=== PATIENT | female | born 2000 | race Two or more races ===

== ENCOUNTER 2025-09-25 04:29 | Emergency (ER) | payer OTHER ==
[~2025-09-25] VITALS: Ht 154.9 cm; Wt 44.9 kg
[2025-09-25] MEDS ORDERED: PROMETHAZINE HCL 25 MG/ML AMPUL IM STA (05:41)
[2025-09-25] MEDS ORDERED: KETOROLAC TROMETHAMINE 15 MG VIAL IM STA (05:42)
[2025-09-25] MEDS ORDERED: FAMOTIDINE/PF 20 MG/2 ML VIAL ONE (05:44)
[2025-09-25] MEDS ORDERED: FAMOTIDINE/PF 20 MG/2 ML VIAL IV STA (05:44)
[2025-09-25] MEDS ORDERED: PROMETHAZINE HCL 25 MG/ML AMPUL ONE ×2 (05:44→08:36)
[2025-09-25] MEDS ORDERED: KETOROLAC TROMETHAMINE 30 MG VIAL ONE (05:44)
[2025-09-25] MEDS ORDERED: 0.9 % SODIUM CHLORIDE 500 ML IV SCH (05:45)
[2025-09-25] MEDS ORDERED: MORPHINE SULFATE 4 MG/ML VIAL IV PRN (07:45)
[2025-09-25] MEDS ORDERED: PANTOPRAZOLE SODIUM 40 MG/VIAL VIAL IV ONE (07:45)
[2025-09-25] MEDS ORDERED: ONDANSETRON HCL 2 MG/ML VIAL IV PRN (07:45)
[2025-09-25 07:51] LABS: BASO % 0.1 % (0.1-1.2); EOS # 0.00 (0.04-0.54); EOS % 0.0 % (0.7-7.0); LYMPH # 0.83 (1.18-3.74); LYMPH % 7.8 % (19.3-53.1); MEAN PLATELET VOLUME 10.00 fl (9.4-12.4); MONO # 0.18 (0.24-0.82); MONO % 1.7 % (4.7-12.5); NEUT # 9.57 (1.56-6.13); NEUT % 90.0 % (34.0-71.1); RED CELL DISTRIBUTION WIDTH 12.2 % (11.6-14.4)
[2025-09-25] MEDS ORDERED: CIPROFLOXACIN IN 5 % DEXTROSE 400 MG/200 ML PIGGYBAG IV ONE (08:17)
[2025-09-25] MEDS ORDERED: ONDANSETRON HCL 2 MG/ML VIAL ONE (08:36)
[2025-09-25] MEDS ORDERED: CIPROFLOXACIN IN 5 % DEXTROSE 400 MG/200 ML PIGGYBAG IV SCH (09:00)
[2025-09-25 10:13] LABS: BUN CREA RATIO 15 (7.0-25.0); CREATININE SERUM 0.87 mg/dL (0.55-1.02); GFR 78.70; GLUCOSE FASTING 193 mg/dL (65-100); OSMOLALITY SERUM 283 MOSM/KG (275-295)
[2025-09-25] MEDS ORDERED: POTASSIUM CHLORIDE IN 0.9%NACL 40 MEQ/1,000 ML PIGGYBAG IV ONE (10:45)
[2025-09-25] MEDS ORDERED: PROMETHAZINE HCL 25 MG/ML AMPUL IM ONE (12:00)
[2025-09-25 15:07] LABS: ALT/SGPT 68.0 U/L (12-78); AST/SGOT 63.0 U/L (15-37); BILIRUBIN TOTAL 0.35 mg/dL (0.3-1.2); BILIRUBIN,CONJUGATED 0.13 mg/dL (0.0-0.2); BUN CREA RATIO 24.0 (7.0-25.0); CREATININE SERUM 0.59 mg/dL (0.55-1.02); GFR 123.21; GLOBULINA 3.3 G/DL (2.4-3.5); GLUCOSE FASTING 111.0 mg/dL (65-100); OSMOLALITY SERUM 288.0 MOSM/KG (275-295)
[2025-09-25 15:36] LABS: COVID-19 AG NEGATIVE (NEGATIVE)
[2025-09-25 20:12] LABS: URINE APPEARANCE Clear; URINE BILIRRUBIN Negative (NEGATIVE); URINE BLOOD Large; URINE COLOR Yellow; URINE LEUKOCYTE Trace; URINE NITRATE Negative; URINE UROBILINOGEN 1.0 E.U./dl
[2025-09-25 20:13] LABS: URINE EPITHELIAL CELLS 90.5 uL (0.0-38.8); URINE RBC 26.7 uL (0.0-20.8); URINE WBC 37.4 uL (0.0-23.2)
[2025-09-25 20:40] LABS: TYPE CELLS SQUAMOUS; URINE CAST 1.13 uL (0.0-1.40); URINE GLUCOSE 250 MG/DL (NEGATIVE); URINE KETONE 80 (NEGATIVE); URINE MUCUS MODERATE; URINE PROTEIN 100 (NEGATIVE)
== END 2025-09-25 20:49 | disposition home or self-care (01) ==
LOC: ER 04:29
PROVIDERS: General Practice
DX: R11.16 Cannabis hyperemesis syndrome (principal); R10.9 Unspecified abdominal pain; R11.10 Vomiting, unspecified; E87.6 Hypokalemia; R10.13 Epigastric pain; Z20.822 Contact with and (suspected) exposure to COVID-19; F12.10 Cannabis abuse, uncomplicated